=== PATIENT | male | born 1995 | race Caucasian/White ===

== ENCOUNTER 2020-05-07 12:36 | Emergency (ER) | payer OTHER ==
[~2020-05-07] VITALS: Ht 180.3 cm; Wt 69.4 kg
[~2020-05-07 12:36] MED LIST: AMOXICILLIN250 MG PO; NAPROSYN500 MG PO; TYLENOL WITH C1 EACH PO
--- OUTSIDE RECORDS SUMMARY | 2020-05-07 13:10 | XMS REPORT | Continuity of Care Document ---
Author Author [facility] t Organization [facility] Address [address] [place] [address] Phone Unavailable Care Team Providers Care Cable Television Line Technician Name Role Phone NO, PCP PCP Unavailable MARY JANE ZARATE Attphyrosalia Unavailable Payers Payer Name Policy Type Policy Number Effective Date Expiration Date [facility] [id number] [id number] Problems This patient has no known problems. Allergies, Adverse Reactions, Alerts This patient has no known allergies or adverse reactions. Medications Ordered Medication Name Filled Medication Name Start Date Stop Da te Current Medication? Ordering Clinician Indication Dosage Frequency Signature (SIG) Comments Components Source Acetaminophen With Codeine (Tylenol With Codeine #3 Ta blet) 1 Each Tablet Acetaminophen With Codeine (Tylenol With Codeine #3 Tablet) 1 Each Tablet 2019-09-20 00:00:00 Yes Mary Jane Zarate Md 300 Twice A Day for Pain [facility] Naproxen (Naprosyn) 500 Mg Tablet Naproxen (Naprosyn) 500 Mg Tablet 2019-09-20 00:00:00 Yes Mary Jane Zarate Md 500 Twice A Day for P ain [facility] Amoxicillin 250 Mg Capsule Amoxicillin 250 Mg Capsule Yes 500 Three Times A Day [facility] Procedures This patient has no known procedures. Encounters Start Date/Time End Date/Time Encounter Type Admission Type Attendi [facility] Facility Care Department Encounter ID Source 2019-09-20 12:50:00 2019-09-20 14:14:00 Departed Emergency Room 1 MARY JANE ZRAATE [facility] [id number] [facility] Results Test Description Test Time Test Comments Results Result Comments Source KNEE 3VW LT - HOPD 2019-09-20 13:48:00 [facility] [address] [place], [place] [address] Patient Name: MICHAEL LOYOLA MR #: [id number] : 1995 Age/Sex: 24/M Req #: [id number] Adm Physician: Ordered by: MARY JANE ZARATE MD Report #: [id number] Location: [facility] Room/Bed: Procedure: [id number] HOPD/KNEE 3VW [facility] Exam Date: 09/20/19 Exam Time: 1339 REPORT STATUS: Signed Left knee, 2 views. History: Left knee pain post injury. Findings: The soft tissues are normal. Bone mineralization is normal. There is no evidence of fracture or dislocation. Small bone island is present in the proximal tibia. The joint spaces are within normal limits. IMPRESSION: Normal left knee. Signed by: Gerardo Rose on 09/20/2019 1:49 PM Dictated By: GERARDO ROSE MD 1349 Transcribed By: LESLIE on 09/20/19 1349 COPY TO: MARY JANE ZARATE MD TIB/FIB 2 VW - [facility] 2019-09-20 13:45:00 [facility] [address] [place], [place] [address] Patient Name: MICHAEL LOYOLA MR #: [id number] : 1995 Age/Sex: 24/M Req #: [id number] Adm Physician: Ordered by: MARY JANE ZARATE MD Report #: [id number] Location: [facility] Room/Bed: Procedure: [id number] HOPD/TIB/FIB 2 VW LT - HOPD Exam Date: 09/20/19 Exam Time: 1339 REPORT STATUS: Signed Left tib-fib series, 2 views. History: Left leg injury. Findings: The soft tissues are normal. Bone mineralization is normal. There is no evidence of fracture or dislocation. A small bone island is present in the proximal tibia. The joint spaces are within normal limits. IMPRESSION: Normal left tib-fib series. Signed by: Gerardo Rose on 09/20/2019 1:47 PM Dictated By: GERARDO ROSE MD 1344 Transcribed By: LESLIE on 09/20/19 1347 COPY TO: MARY JANE ZARATE MD
--- NOTE | 2020-05-07 13:27 | Diagnostic Imaging Report ---
EXAMINATION: CXR 1 VEW - HOPD INDICATION: Shortness of breath COMPARISON: None FINDINGS: LINES/TUBES:None LUNGS:The lungs are well-inflated. No focal consolidation or pulmonary edema. PLEURA:No pleural effusion or pneumothorax. MEDIASTINUM:The cardiomediastinal silhouette appears normal in size and shape. BONES/SOFT TISSUES:No acute osseous injury. ABDOMEN:No free air under the diaphragm. IMPRESSION: No focal pneumonia or pulmonary edema. Signed by: Kylah Foster MD on 05/07/2020 1:23 PM
--- NOTE | 2020-05-07 13:44 | Emergency Department Note ---
History of Present Illnes History of Present Illness Chief Complaint: Respiratory History of Present Illness This is a 25 year old male Chief Complaint Comment Reports that while he was driving he became short of breath and he cannot take a deep breath without effort. Pt states earlier at home while lying down he became dizzy with shortness of breath. Pt denies any pain, nausea or vomiting. . Historian: Patient, Family Member Onset (how long ago): day(s) (1) Location: palpitation Radiation: Reports non-radiation Severity: mild Onset quality: sudden Duration (how long): day(s) (1) Timing of current episode: intermittent Progression: waxing and waning Chronicity: new Context: Denies recent illness, Denies recent surgery, Denies recent immobilization, Denies recent travel, Denies trauma/injury, Denies new medications, Denies hx of DVT/PE, Denies non-compliance w/ medications, Denies other Relieving factors: none Exacerbating factors: none Associated symptoms: Reports denies other symptoms Treatments prior to arrival: none Past Medical/Family History Physician Review I have reviewed the patient's past medical and family history. Any updates have been documented here. Past Medical History Recent Fever: No Clinical Suspicion of Infectio: No New/Unexplained Change in Ment: No Past Medical History: None Past Surgical History: None Social History Smoking Cessation: Never Smoker Counseling Performed: No Alcohol Use: Occasional Any Illegal Drug Use: No Physically hurt or threatened: No Other Last Tetanus: UTD Any Pre-Existing Lines (PICC,: No Review of Systems Review of Systems Constitutional: Reports no symptoms EENTM: Reports no symptoms Cardiovascular: Reports as per HPI Respiratory: Reports no symptoms Gastrointestinal: Reports no symptoms Genitourinary: Reports no symptoms Musculoskeletal: Reports no symptoms Integumentary: Reports no symptoms Neurological: Reports no symptoms Psychological: Reports no symptoms Endocrine: Reports no symptoms Hematological/Lymphatic: Reports no symptoms Physical Exam Related Data Allergies: Coded Allergies: No Known Allergies (Unverified , 06/29/14) Triage Vital Signs Vital Signs Date Time Temp Pulse Resp B/P (MAP) Pulse Ox O2 Delivery O2 Flow Rate FiO2 05/07/20 12:41 98.9 74 18 152/83 100 Room Air Vital signs reviewed: Yes Physical Exam CONSTITUTIONAL Constitutional: Present well-developed, Present well-nourished HENT HENT: Present normocephalic, Present atraumatic, Present oropharynx clear/moist, Present nose normal HENT L/R: Present left ext ear normal, Present right ext ear normal EYES Eyes: Reports PERRL, Reports conjunctivae normal NECK Neck: Present ROM normal PULMONARY Pulmonary: Present effort normal, Present breath sounds normal CARDIOVASCULAR Cardiovascular: Present regular rhythm, Present heart sounds normal, Present capillary refill normal, Present normal rate GASTROINTESTINAL Abdominal: Present soft, Present nontender, Present bowel sounds normal GENITOURINARY Genitourinary: Present exam deferred SKIN Skin: Present warm, Present dry MUSCULOSKELETAL Musculoskeletal: Present ROM normal NEUROLOGICAL Neurological: Present alert, Present oriented x 3, Present no gross motor or sensory deficits PSYCHOLOGICAL Psychological: Present mood/affect normal, Present judgement normal Results Laboratory Lab results reviewed: Yes Imaging Imaging results reviewed: Yes Procedures 12 Lead ECG Interpretation ECG Interpretation : ECG: ECG 1 Associate Professor Of Education: Interpreted by ED physician Date: May 07, 2020 Time: 13:18 Rhythm: sinus tachycardia Rate: normal BPM: 58 QRS axis: normal ST segments normal: Yes T waves normal: Yes Assessment & Plan Medical Decision Making MDM SVT AFIB Reassessment Reassessment BETTER Assessment & Plan Final Impression: (1) Sinus bradycardia (2) Palpitations Depart Disposition: HOME, SELF-CARE Last Vital Signs Date Time Temp Pulse Resp B/P (MAP) Pulse Ox O2 Delivery O2 Flow Rate FiO2 05/07/20 12:41 98.9 74 18 152/83 100 Room Air Home Meds Active Scripts Acetaminophen With Codeine (TYLENOL WITH CODEINE #3 TABLET) 1 Each Tablet, 300 MG PO BID for pain, #14 TAB Prov:APRIL RUVALCABA MD 09/20/19 Naproxen (NAPROSYN) 500 Mg Tablet, 500 MG PO BID for pain, #20 Prov:APRIL RUVALCABA MD 09/20/19 Reported Medications Amoxicillin (AMOXICILLIN) 250 Mg Capsule, 500 MG PO TID, CAP 06/29/14 APRIL RUVALCABA MD May 07, 2020 13:44
[2020-05-07] MEDS ORDERED: METOPROLOL TART25 MG PO (13:46)
[2020-05-07 13:56] VITALS: BP 142/75
== END 2020-05-07 14:09 | disposition home or self-care (01) ==
LOC: FSED 13:08
DX: R00.2 Palpitations (principal); R06.02 Shortness of breath; R00.1 Bradycardia, unspecified
CPT/HCPCS: 71045; 80053; 83880; 85025; 85379; 93005; 99284

== ENCOUNTER 2021-12-04 09:12 | Emergency (ER) | payer BC, OTHER ==
[~2021-12-04] VITALS: Ht 180.3 cm; Wt 69.4 kg
[~2021-12-04 09:12] MED LIST changes: +METOPROLOL TART25 MG PO
[2021-12-04 10:22] LABS: BASOPHILS # (AUTO) 0.1 (0.0-0.1); BASOPHILS % 1.7 % (0.0-1.0); EOSINOPHILS # (AUTO) 0.1 (0.0-0.4); EOSINOPHILS % 2.2 % (0.0-6.0); HEMATOCRIT 41.2 % (38.2-49.6); HEMOGLOBIN 14.3 g/dL (14.0-18.0); LYMPHOCYTES # (AUTO) 1.8 (1.0-3.2); LYMPHOCYTES % 38.1 % (18.0-39.1); MEAN CORPUSCULAR HEMOGLOBIN 30.6 pg (28-32); MEAN CORPUSCULAR HGB CONC 34.7 g/dL (31-35); MONOCYTES # (AUTO) 0.5 (0.2-0.8); MONOCYTES % 10.8 % (4.4-11.3); NEUTROPHILS # (AUTO) 2.2 (2.1-6.9); PLATELET COUNT 362 x10e3/uL (140-360); RED BLOOD COUNT 4.68 x10e6/uL (4.3-5.7); RED CELL DISTRIBUTION WIDTH 12.2 % (11.7-14.4)
[2021-12-04 10:40] LABS: ALBUMIN 4.4 g/dL (3.5-5.0); ALBUMIN/GLOBULIN RATIO 1.2 (0.8-2.0); ANION GAP 11.7 mmol/L (8-16); CALCIUM 9.5 mg/dL (8.4-10.2); CREATININE, SERUM 0.97 mg/dL (0.72-1.25); MAGNESIUM 1.8 MG/DL (1.3-2.1); POTASSIUM 3.7 mmol/L (3.5-5.1)
[2021-12-04 10:45] LABS: CREATINE KINASE MB 0.5 ng/mL (0-5.0)
[2021-12-04 11:28] VITALS: BP 125/62
== END 2021-12-04 11:33 | disposition home or self-care (01) ==
LOC: ER 09:18
DX: R07.89 Other chest pain (principal); R00.1 Bradycardia, unspecified; Z20.822 Contact with and (suspected) exposure to COVID-19
CPT/HCPCS: 36415; 71045; 80053; 82550; 82553; 83735; 84484; 85025; 85379; 93005; 99284; U0002

== ENCOUNTER 2022-05-24 05:50 | Emergency (ER) | payer BC ==
[~2022-05-24] VITALS: Ht 180.3 cm; Wt 69.4 kg
[2022-05-24] MEDS ORDERED: MECLIZINE HCL 12.5 MG TAB PO ONE (06:30)
[2022-05-24] MEDS ORDERED: MECLIZINE HCL 12.5 MG TAB ONE (06:53)
[2022-05-24] MEDS ORDERED: ONDANSETRON HCL INJ 2MG/ML 2ML 2 MG/ML VIAL IV PRN (07:15)
[2022-05-24] MEDS ORDERED: ASPIRIN 81 MG CHEW TAB PO ONE (07:15)
[2022-05-24] MEDS ORDERED: ANTIVERT25 M1 PO (07:44)
[2022-05-24 07:47] VITALS: BP 130/71
[2022-05-24] MEDS ORDERED: ASPIRIN 325 MG TAB EC PO SCH (09:00)
== END 2022-05-24 07:54 | disposition home or self-care (01) ==
LOC: FSED 05:59
DX: R42 Dizziness and giddiness (principal); R07.89 Other chest pain; R51.9 Headache, unspecified
CPT/HCPCS: 70450; 71045; 80048; 84484; 85025; 93005; 99284; J8597

== ENCOUNTER 2022-06-23 20:05 | Emergency (ER) | payer BC ==
[~2022-06-23] VITALS: Ht 180.3 cm; Wt 70.3 kg
[~2022-06-23 20:05] MED LIST changes: +ANTIVERT25 M1 PO
[2022-06-23 21:07] LABS: COLOR,URINE YELLOW (YELLOW)
[2022-06-23 21:08] LABS: CLARITY,URINE CLEAR (CLEAR)
[2022-06-23 21:09] LABS: KETONES,URINE NEGATIVE (NEGATIVE); LEUKOCYTE ESTERASE ,URINE NEGATIVE (NEGATIVE); NITRITE,URINE NEGATIVE (NEGATIVE); PROTEIN,URINE DIPSTICK NEGATIVE (NEGATIVE); URINE UROBILINOGEN 0.2 mg/dL (0.2 - 1)
[2022-06-23 21:13] LABS: RBC,URINE 0-5 /HPF (0-5); WBC,URINE (MAN) 0-5 /HPF (0-5)
[2022-06-23 23:00] VITALS: BP 128/84
== END 2022-06-23 22:47 | disposition home or self-care (01) ==
LOC: ER 20:09
DX: R10.32 Left lower quadrant pain (principal); K59.00 Constipation, unspecified; M54.50 Low back pain, unspecified; R11.0 Nausea
CPT/HCPCS: 74019; 81001; 99283

== ENCOUNTER 2022-09-25 16:44 | Emergency (ER) | payer BC ==
[~2022-09-25] VITALS: Ht 180.3 cm; Wt 70.3 kg
[2022-09-25] MEDS ORDERED: ASPIRIN 81 MG CHEW TAB PO ONE (17:15)
[2022-09-25 17:21] LABS: BASOPHILS # (AUTO) 0.1 (0.0-0.1); BASOPHILS % 1.3 % (0.0-1.0); EOSINOPHILS # (AUTO) 0.1 (0.0-0.4); EOSINOPHILS % 0.8 % (0.0-6.0); HEMATOCRIT 42.5 % (38.2-49.6); HEMOGLOBIN 13.7 g/dL (14.0-18.0); LYMPHOCYTES # (AUTO) 2.5 (1.0-3.2); LYMPHOCYTES % 33.1 % (18.0-39.1); MEAN CORPUSCULAR HGB CONC 32.2 g/dL (31-35); MEAN CORPUSCULAR VOLUME 93.2 fL (81-99); MONOCYTES # (AUTO) 0.6 (0.2-0.8); MONOCYTES % 7.3 % (4.4-11.3); NEUTROPHILS # (AUTO) 4.4 (2.1-6.9); NEUTROPHILS % 57.2 % (38.7-80.0); PLATELET COUNT 348 x10e3/uL (140-360); RED BLOOD COUNT 4.56 x10e6/uL (4.3-5.7); RED CELL DISTRIBUTION WIDTH 11.8 % (11.7-14.4)
[2022-09-25 17:39] LABS: ALBUMIN 4.4 g/dL (3.5-5.0); ALBUMIN/GLOBULIN RATIO 1.2 (0.8-2.0); ANION GAP 12.6 mmol/L (8-16); CALCIUM 9.5 mg/dL (8.4-10.2); CREATININE, SERUM 1.07 mg/dL (0.72-1.25); POTASSIUM 3.6 mmol/L (3.5-5.1)
[2022-09-25] MEDS ORDERED: HYDROXYZINE HCL 25 MG TAB PO ONE (17:45)
[2022-09-25 17:46] LABS: CREATINE KINASE MB 1.4 ng/mL (0-5.0)
[2022-09-25 18:03] LABS: AMPHETAMINES SCREEN,URINE NEGATIVE (NEGATIVE); BENZODIAZEPINES SCREEN,URINE NEGATIVE (NEGATIVE); PHENCYCLIDINE SCREEN,URINE NEGATIVE (NEGATIVE)
[2022-09-25] MEDS ORDERED: HYDROXYZINE HCL 25 MG TAB ONE (18:03)
[2022-09-25] MEDS ORDERED: HYDROXYZINE HCL25 MG PO (19:36)
[2022-09-25 20:00] VITALS: BP 123/80
== END 2022-09-25 20:02 | disposition home or self-care (01) ==
LOC: ER 16:53
DX: R00.2 Palpitations (principal); R07.89 Other chest pain; F41.9 Anxiety disorder, unspecified; I34.1 Nonrheumatic mitral (valve) prolapse
CPT/HCPCS: 36415; 70450; 71045; 80053; 80307; 82550; 82553; 84484; 85025; 85379; 93005; 99284; J3410

== ENCOUNTER 2024-04-23 17:45 | Emergency (ER) | payer BC ==
[~2024-04-23] VITALS: Ht 180.3 cm; Wt 70.3 kg
[~2024-04-23 17:45] MED LIST changes: +CYCLOBENZAPRINE10 MG PO; +HYDROXYZINE HCL25 MG PO; +METHOCARBAMOL750 MG PO
[2024-04-23 17:50] VITALS: PULSE 80; RESP 18; TEMP 98.2
[2024-04-23] MEDS ORDERED: FLUORESCEIN SOD(OPTH) 1 MG STRP OP ONE (18:00)
[2024-04-23] MEDS ORDERED: TETRACAINE HCL 0.5% OPTH SOLN 4 ML BTL OP ONE (18:00)
[2024-04-23 19:02] VITALS: BP 119/62; PULSE 74; RESP 18; TEMP 98.3; O2SAT 100
== END 2024-04-23 19:00 | disposition home or self-care (01) ==
LOC: FSED 18:05
DX: H53.8 Other visual disturbances (principal); F41.9 Anxiety disorder, unspecified; I34.1 Nonrheumatic mitral (valve) prolapse
CPT/HCPCS: 36415; 82948; 99283